=== PATIENT | male | born 2005 | race Caucasian/White ===

== ENCOUNTER 2024-07-20 15:01 | Emergency (ER) | payer BC, SELFPAY ==
[2024-07-20 15:02] VITALS: BP 138/84; PULSE 90; RESP 17; TEMP 36.1; O2SAT 97; BMI 26.0
--- NOTE | 2024-07-20 16:37 | EX.ED.DYSGE1 ---
HPI History of Present Illness Chief Complaint: Bite Informant: patient Narrative Narrative: 19-year-old male [employer] student presenting to the emergency room out of concern for a bat bite. Patient states that Saturday night he slept with his windows open. There is a bat problem at the [facility]. Patient states that he noticed 2 pinpoint pitts on his medial right ankle. He [facility] to the [facility] and was referred to emergency room out of concern for possibly needing rabies. After contemplation he is interested in receiving the vaccination. [facility] Medical History GERD (gastroesophageal reflux disease) Seasonal allergies Allergy/AdvReac Type Severity Reaction Status Date / Time No Known Allergies Allergy Verified 07/20/24 15:01 Social History Smoking Status: Unknown if ever smoked ROS ROS ED Constitutional Constitutional ED: Denies chills or weight loss Eyes Eyes: Denies change in vision or diplopia ENT ENT ED: Denies ear pain, rhinorrhea or sore throat Cardiovascular Cardiovascular: Denies chest pain, orthopnea, palpitations or racing heartbeat Respiratory/Chest Respiratory/Chest: Denies cough, dyspnea or orthopnea Gastrointestinal Gastrointestinal: Denies abdominal pain, diarrhea, nausea or vomiting Genitourinary Genitourinary ED: Denies dysuria, hematuria or urinary frequency Musculoskeletal Musculoskeletal: Denies arthralgias or myalgias Integumentary Reports other Details: See HPI ; Denies abscess or rash Neurologic Neurologic: Denies headache(s) or weakness Psychiatric Psychiatric: Denies anxiety, depression, suicidal ideation or suicidal thoughts Endocrine Endocrinology: Denies polydipsia, polyphagia or polyuria Allergic/Immunologic Allergic/Immunologic ED: Denies mouth swelling, tongue swelling or urticaria EXAM Physical Exam Const Vital Signs: 07/20/24 15:02 Temperature 96.9 F L Temperature Source Temporal Pulse Rate 90 Respiratory Rate 17 Blood Pressure 138/84 H Blood Pressure Mean 102 Pulse Ox 97 Oxygen Delivery Method Room Air Positive well nourished and well developed General Appearance ED: well developed HEENT Reports normocephalic, head/scalp atraumatic and moist mucous membranes Eyes PERRL and EOMs intact bilaterally Neck no lymphadenopathy, supple and no JVD Resp normal respiratory effort and clear to auscultation bilaterally Cardio regular rate, regular rhythm and no murmurs GI normal to inspection, nondistended, normoactive bowel sounds and non-tender Palpation: soft Back/Spine no CVA tenderness and normal ROM Extremity normal to inspection General Extremety ED: Negative for edema General Extremity: Negative for edema Neuro oriented x3 and CN's II-XII intact bilaterally Sensorium / Orientation: alert Motor Exam: strength 5/5 throughout Psych mental status grossly normal Mood & Affect: Negative for depressed or tearful Skin no rashes or lesions noted Skin Narrative: There are 2 pinpoint lesions over the medial right ankle by about 3 to 4 mm. There is no surrounding erythema or obvious signs of infection. MDM MDM MDM Narrative Medical decision making narrative: Differential diagnosis includes but not limited to bat bite insect bite abrasion rabies exposure After discussion with the patient he elects to receive rabies immunoglobulin and vaccination. He will be going back home to [place] at the end of the term will not be in town for his last vaccination. Advised him on sending his doctor our documentation so they can help him get the final vaccination back home. History & Record Review Discussion w/independent historian: Patient Discharge Plan Triage Chief Complaint: Bite ED Provider: Marcos Rousseau Dx/Rx/DC Orders Clinical Impression: Bat bite wound Instructions: Understanding Rabies Primary Care Provider: [facility] Physician,No Primary Referrals: [facility] Doctor,Out of [Non-Staff] - Activity Restrictions/Additional Instructions: As we discussed the rabies vaccination is a series. I would urged you to contact your doctor now in [place] so that when you return home you can get the final vaccination in the series. Print Language: Grenadian Disposition Disposition: Home, Self Care
[2024-07-20] MEDS: Rabies Vaccine,Human Diploid 2.5 UNITS Vial IM (17:02)
[2024-07-20] MEDS: Rabies Immune Globulin/PF 300 UNIT/ML, 5 ML VIAL 1500 UNIT IM (17:03)
[2024-07-20] MEDS: Rabies Immune Globulin 150 U/ML 2ml Vial IM (17:05)
[2024-07-20 17:33] VITALS: BP 118/70; PULSE 68; RESP 12; TEMP 36.6; O2SAT 99
== END 2024-07-20 17:34 | disposition home or self-care (01) ==
LOC: ED 16:18
PROVIDERS: Emergency Provider Emergency Medicine; Visit Provider Emergency Medicine
DX: S90.571A Other superficial bite of ankle, right ankle, initial encounter (principal); W55.81XA Bitten by other mammals, initial encounter; Y93.84 Activity, sleeping; Y92.214 College as the place of occurrence of the external cause; Z23 Encounter for immunization
CPT/HCPCS: 90675; 96372; 99282; 90375

== ENCOUNTER 2024-07-23 08:45 | Outpatient (REF) | payer BC, SELFPAY ==
[2024-07-23 08:45] VITALS: BP 120/72; PULSE 87; RESP 14; TEMP 36.1; O2SAT 97; BMI 26.0
[2024-07-23] MEDS: Rabies Vaccine,Human Diploid 2.5 UNITS Vial IM (09:30)
[2024-07-23 09:44] VITALS: BP 118/91; PULSE 69; RESP 14; TEMP 36.1; O2SAT 98
== END 2024-07-23 10:00 | disposition home or self-care (01) ==
LOC: EDREF 08:45
PROVIDERS: Visit Provider Emergency Medicine
DX: Z23 Encounter for immunization (principal); S90.571A Other superficial bite of ankle, right ankle, initial encounter; W55.81XA Bitten by other mammals, initial encounter; Y93.84 Activity, sleeping; Y92.214 College as the place of occurrence of the external cause
CPT/HCPCS: 90675; 96372

== ENCOUNTER 2024-07-27 08:35 | Outpatient (CLI) | payer BC, SELFPAY ==
[2024-07-27 08:37] VITALS: BP 117/77; PULSE 80; RESP 14; TEMP 36.8; O2SAT 98; BMI 26.2
[2024-07-27] MEDS: Rabies Vaccine,Human Diploid 2.5 UNITS Vial IM (08:52)
[2024-07-27 08:54] VITALS: BP 117/77; PULSE 80; RESP 14; TEMP 36.8; O2SAT 98
== END 2024-07-27 09:10 | disposition home or self-care (01) ==
PROVIDERS: Visit Provider Emergency Medicine
DX: Z23 Encounter for immunization (principal)
CPT/HCPCS: 90675